=== PATIENT | female | born 1985 | race African-American/Black ===

== ENCOUNTER 2020-07-13 21:37 | Emergency (ER) | payer SELFPAY ==
[~2020-07-13] VITALS: Ht 162.6 cm; Wt 54.0 kg
[2020-07-13] MEDS ORDERED: CYCLOBENZAPRINE5 MG PO (22:21)
[2020-07-13 23:02] VITALS: BP 133/91
== END 2020-07-13 23:02 | disposition home or self-care (01) ==
LOC: FSED 21:55
DX: S16.1XXA Strain of muscle, fascia and tendon at neck level, initial encounter (principal); Y92.488 Other paved roadways as the place of occurrence of the external cause
CPT/HCPCS: 72050; 99282